=== PATIENT | female | born 1985 | race Caucasian/White ===

== ENCOUNTER 2017-03-23 13:24 | Emergency (ER) | payer MEDICAID, OTHER ==
[~2017-03-23] VITALS: Ht 160 cm; Wt 75.0 kg
[~2017-03-23 13:24] MED LIST: BENZ1TAB7; BIRTH CONTROL; CITA40TA22; DEPAKOTE; KEPP500 PO; LEVE1000 PO; LEVO50TA52; PHEN100C4 PO; TRAZADONE; ZIPR60CA4
[2017-03-23 15:06] VITALS: BP 107/71
== END 2017-03-23 16:39 | disposition home or self-care (01) ==
LOC: ER 14:02
DX: G40.909 Epilepsy, unspecified, not intractable, without status epilepticus (principal); E03.8 Other specified hypothyroidism; F31.9 Bipolar disorder, unspecified; Z91.013 Allergy to seafood; Z91.018 Allergy to other foods; Z88.8 Allergy status to other drugs, medicaments and biological substances
CPT/HCPCS: 99283

== ENCOUNTER 2017-04-01 14:24 | Emergency (ER) | payer MEDICAID ==
[~2017-04-01] VITALS: Ht 160 cm; Wt 66.0 kg
[2017-04-01 14:49] VITALS: BP 100/64
== END 2017-04-01 16:31 | disposition home or self-care (01) ==
LOC: ER 15:53
DX: H60.92 Unspecified otitis externa, left ear (principal); H91.92 Unspecified hearing loss, left ear; E03.9 Hypothyroidism, unspecified; R56.9 Unspecified convulsions; Z88.8 Allergy status to other drugs, medicaments and biological substances; Z91.09 Other allergy status, other than to drugs and biological substances
CPT/HCPCS: 99283